=== PATIENT | male | born 1990 | race Asian ===

== ENCOUNTER 2025-04-22 08:41 | Emergency (ER) | payer BC ==
[~2025-04-22] VITALS: Ht 165.1 cm; Wt 70.0 kg
[2025-04-22 08:50] VITALS: BP 155/85; PULSE 67; RESP 18; TEMP 36.9; O2SAT 99
== END 2025-04-22 12:19 | disposition left against medical advice (07) ==
LOC: ER 08:41
DX: S61.216A Laceration without foreign body of right little finger without damage to nail, initial encounter (principal); W27.8XXA Contact with other nonpowered hand tool, initial encounter; Y93.89 Activity, other specified; Y92.89 Other specified places as the place of occurrence of the external cause; Y99.8 Other external cause status
CPT/HCPCS: 99281